=== PATIENT | male | born 1990 | race Hispanic/Latino ===

== ENCOUNTER 2018-03-15 06:13 | Emergency (ER) | payer OTHER ==
[2018-03-15] MEDS ORDERED: SODIUM CHLORIDE 0.9% 1000ML 1,000 ML IV ONE (06:23)
[2018-03-15] MEDS ORDERED: ONDANSETRON HCL MDV 20ML 2 MG/ML VIAL ONE (06:23)
[2018-03-15 06:38] LABS: BASOPHILS % (AUTO) 1.2 % (0.0-5.0); EOSINOPHILS % (AUTO) 2.3 % (0.0-8.0); HEMATOCRIT 44.2 % (42-54); LYMPHOCYTES % (AUTO) 27.5 % (21.0-51.0); MEAN CORPUSCULAR HEMOGLOBIN 28.5 pg (27.0-33.0); MEAN CORPUSCULAR HGB CONC 33.5 g/dL (32.0-36.0); MONOCYTES % (AUTO) 7.5 % (3.0-13.0); NEUTROPHILS % (AUTO) 61.5 % (40.0-77.0); PLATELET COUNT (AUTO) 248 K/uL (130-400); RED CELL DISTRIBUTION WIDTH 14.5 % (11.0-15.5); WHITE BLOOD COUNT (AUTO) 7.7 K/uL (4.8-10.8)
[2018-03-15 06:53] LABS: CREATININE 0.8 mg/dL (0.5-1.5); POTASSIUM 3.6 mmol/L (3.5-5.1)
[2018-03-15 06:57] LABS: ALBUMIN 3.3 g/dL (3.5-5.0); BILIRUBIN,TOTAL 0.4 mg/dL (0.2-1.0); TOTAL PROTEIN, SERUM 8.1 g/dL (6.0-8.3)
[2018-03-15] MEDS ORDERED: MORPHINE SULFATE 8 MG/ML VIAL ONE (06:58)
[2018-03-15] MEDS ORDERED: KETOROLAC TROMETHAMINE 60 MG/2 ML VIAL ONE (08:16)
[2018-03-15] MEDS ORDERED: DICYCLOMINE HCL 10 MG/ML 2ML AMP IM ONE (08:16)
== END 2018-03-15 09:43 | disposition home or self-care (01) ==
LOC: EDH 06:13
DX: K52.9 Noninfective gastroenteritis and colitis, unspecified (principal)
CPT/HCPCS: 36415; 74021; 80053; 83690; 85025; 93005; 96361; 96372 ×2; 96374; 96375; 99285; J0500; J1885; J2270; J7030

== ENCOUNTER 2018-07-18 10:38 | Inpatient (IN) | payer SELFPAY ==
[~2018-07-18] VITALS: Ht 180.3 cm; Wt 226.8 kg
[2018-07-18 12:38] LABS: CREATININE 0.7 mg/dL (0.5-1.5); POTASSIUM 3.5 mmol/L (3.5-5.1)
[2018-07-18] MEDS ORDERED: PREDNISONE 20 MG TABLET ONE (14:34)
[2018-07-18] MEDS ORDERED: INSULIN HUMULIN R 100 UNIT/ML 3ML ONE (14:35)
[2018-07-18] MEDS ORDERED: ACYCLOVIR 800 MG TABLET PO SCH (15:30)
[2018-07-18] MEDS ORDERED: PHARMACY COMMUNICATION MISC SCH (15:45)
[2018-07-18] MEDS ORDERED: MEDROL DAY 1 BREAKFAST PO NR (16:05)
[2018-07-18] MEDS ORDERED: MEDROL DAY 1 LUNCH AND DINNER PO NR (16:06)
[2018-07-18] MEDS ORDERED: INSULIN HUMULIN R 100 UNIT/ML 3ML SQ SCH (16:30)
[2018-07-18] MEDS ORDERED: MEDROL DAY1 HS PO NR (21:00)
[2018-07-19] MEDS ORDERED: MEDROL DAY 2 BRK PO NR (07:30)
[2018-07-19] MEDS ORDERED: MEDROL DAY 2 LCH PO NR (11:30)
[2018-07-19] MEDS ORDERED: MEDROL DAY 2 DIN PO NR (16:30)
[2018-07-19] MEDS ORDERED: MEDROL DAY 2 HS PO NR (21:00)
[2018-07-20] MEDS ORDERED: MEDROL DAY 3 PO NR (07:30)
[2018-07-21] MEDS ORDERED: MEDROL DAY 4 BKF PO NR (07:30)
[2018-07-21] MEDS ORDERED: MEDROL DAY 4 LCH PO NR (11:30)
[2018-07-21] MEDS ORDERED: MEDROL DAY 4 DIN PO NR (16:30)
[2018-07-22] MEDS ORDERED: MEDROL DAY 5 BKF PO NR (07:30)
[2018-07-22] MEDS ORDERED: MEDROL DAY 5 HS PO NR (21:00)
[2018-07-23] MEDS ORDERED: MEDROL DAY 6 PO NR (07:30)
== END 2018-07-18 16:24 | disposition left against medical advice (07) | DRG 74 ==
LOC: EDH 10:38 → EDHIP 10:39 → EDH 16:24
PROVIDERS: ADMIT Hospitalist; ATTEND Hospitalist
DX: G51.0 Bell's palsy (principal); Z68.44 Body mass index [BMI] 60.0-69.9, adult; E11.9 Type 2 diabetes mellitus without complications; F12.90 Cannabis use, unspecified, uncomplicated; E66.9 Obesity, unspecified
CPT/HCPCS: 36415; 70450; 80048; 82948; J1815; J7509

== ENCOUNTER 2019-07-25 11:19 | Emergency (ER) | payer SELFPAY ==
[2019-07-25 12:13] LABS: BASOPHILS % (AUTO) 1.1 % (0.0-5.0); EOSINOPHILS % (AUTO) 2.4 % (0.0-8.0); HEMATOCRIT 44.4 % (42-54); LYMPHOCYTES % (AUTO) 29.8 % (21.0-51.0); MEAN CORPUSCULAR HEMOGLOBIN 29.4 pg (27.0-33.0); MEAN CORPUSCULAR HGB CONC 33.9 g/dL (32.0-36.0); MEAN CORPUSCULAR VOLUME 86.5 fL (79-99); MONOCYTES % (AUTO) 9.6 % (3.0-13.0); NEUTROPHILS % (AUTO) 57.1 % (40.0-77.0); PLATELET COUNT (AUTO) 333 K/uL (130-400); RED BLOOD CELL COUNT(AUTO) 5.14 MIL/uL (4.50-6.20); RED CELL DISTRIBUTION WIDTH 14.7 % (11.0-15.5); WHITE BLOOD COUNT (AUTO) 10.3 K/uL (4.8-10.8)
[2019-07-25] MEDS ORDERED: ONDANSETRON HCL 4 MG/2 ML VIAL ONE (12:33)
[2019-07-25] MEDS ORDERED: KETOROLAC TROMETHAMINE 30MG/ML ONE (12:33)
[2019-07-25] MEDS ORDERED: DICYCLOMINE HCL 10 MG/ML 2ML AMP IM ONE (12:33)
[2019-07-25] MEDS ORDERED: SODIUM CHLORIDE 0.9% 1000ML 1,000 ML IV ONE (12:34)
[2019-07-25 12:39] LABS: CREATININE 0.7 mg/dL (0.5-1.5); POTASSIUM 3.7 mmol/L (3.5-5.1)
[2019-07-25 12:45] LABS: ALBUMIN 3.4 g/dL (3.5-5.0); BILIRUBIN,TOTAL 0.3 mg/dL (0.2-1.0); TOTAL PROTEIN, SERUM 7.7 g/dL (6.0-8.3)
[2019-07-25 12:55] LABS: APPEARANCE,URINE Clear (CLEAR); BILIRUBIN,URINE Negative (NEGATIVE); COLOR,URINE Yellow (YELLOW); GLUCOSE, URINE (UA) Negative (NEGATIVE); KETONES,URINE Negative (NEGATIVE); LEUKOCYTE ESTERASE ,URINE Negative (NEGATIVE); NITRATE,URINE Negative (NEGATIVE); OCCULT BLOOD,URINE Negative (NEGATIVE); PROTEIN,URINE Negative (NEGATIVE)
== END 2019-07-25 13:35 | disposition home or self-care (01) ==
LOC: EDH 11:19
DX: R10.84 Generalized abdominal pain (principal); R19.7 Diarrhea, unspecified; E11.9 Type 2 diabetes mellitus without complications; I10 Essential (primary) hypertension; F12.10 Cannabis abuse, uncomplicated; Z72.0 Tobacco use
CPT/HCPCS: 36415; 80053; 81003; 82948; 83690; 85025; 96361; 96372; 96374; 96375; 99284; J0500; J1885; J2405; J7030

== ENCOUNTER 2021-08-12 12:21 | Emergency (ER) | payer SELFPAY ==
[~2021-08-12] VITALS: Ht 180.3 cm; Wt 229.1 kg
[2021-08-12] MEDS ORDERED: CEFTRIAXONE 1G VIAL IM STA (13:03)
[2021-08-12] MEDS ORDERED: ONDANSETRON ODT 4MG TAB SL STA (13:03)
[2021-08-12] MEDS ORDERED: DEXAMETHASONE SOD PHOSPHATE 4 MG/ML 1ML VIAL IM STA (13:03)
[2021-08-12] MEDS ORDERED: HYDROCODONE/ACETAMINOPHEN 5/325 MG TAB PO STA (13:03)
[2021-08-12] MEDS ORDERED: AZITHROMYCIN 250 MG TABLET PO STA (13:08)
[2021-08-12] MEDS ORDERED: LIDOCAINE HCL-MPF 1% 2ML VIAL ONE (13:29)
[2021-08-12 13:53] VITALS: BP 147/90
[2021-08-12] MEDS ORDERED: AMOX-429 PO (14:55)
[2021-08-12] MEDS ORDERED: IBUP-2088 PO (14:55)
== END 2021-08-12 15:26 | disposition home or self-care (01) ==
LOC: EDH 12:21
DX: J02.9 Acute pharyngitis, unspecified (principal); Z20.822 Contact with and (suspected) exposure to COVID-19; Z79.899 Other long term (current) drug therapy
CPT/HCPCS: 87635; 87880; 96372 ×2; 99284; C9803; J0696; J1100; J3490

== ENCOUNTER 2021-10-01 23:36 | Emergency (ER) | payer SELFPAY ==
[~2021-10-01] VITALS: Ht 180.3 cm; Wt 230.4 kg
[~2021-10-01 23:36] MED LIST: AMOX-429 PO; IBUP-2088 PO
[2021-10-01 23:59] VITALS: BP 153/90
[2021-10-02] MEDS ORDERED: ONDANSETRON ODT 4MG TAB SL ONE
[2021-10-02] MEDS ORDERED: ACETAMINOPHEN 500 MG TABLET PO ONE
[2021-10-02] MEDS ORDERED: AMOX/CLAV 500/125MG TAB PO ONE (01:00)
[2021-10-02] MEDS ORDERED: AMOX500C2 PO (01:01)
== END 2021-10-02 01:28 | disposition home or self-care (01) ==
LOC: EDH 23:36
DX: J02.9 Acute pharyngitis, unspecified (principal); Z20.822 Contact with and (suspected) exposure to COVID-19; J45.909 Unspecified asthma, uncomplicated; E66.9 Obesity, unspecified; R03.0 Elevated blood-pressure reading, without diagnosis of hypertension; Z79.1 Long term (current) use of non-steroidal anti-inflammatories (NSAID); Z79.899 Other long term (current) drug therapy; Z68.45 Body mass index [BMI] 70 or greater, adult
CPT/HCPCS: 87635; 87804 ×2; 87880; 99284; C9803